=== PATIENT | male | born 1940 | race Caucasian/White ===

== ENCOUNTER 2018-05-30 10:11 | Inpatient (IN) | payer MEDICARE, MEDICAID ==
[~2018-05-30] VITALS: Ht 170.2 cm; Wt 81.6 kg
[2018-05-30 11:53] LABS: HEMATOCRIT. 38.7 % (42.0-52.0); HEMOGLOBIN. 12.5 g/dL (14.0-18.0); MEAN CORPUSCULAR HEMOGLOBIN 31.7 pg (28.0-32.0); MEAN CORPUSCULAR VOLUME 98.5 fL (80.0-94.0); MEAN PLATELET VOLUME 9.3 fl (7.4-10.4); PLATELET 166 x1000/uL (130-400); RED BLOOD CELL COUNT 3.93 mill/uL (4.7-6.1)
[2018-05-30 11:59] LABS: CHLORIDE 105 mEq/L (98-107)
[2018-05-30 12:27] LABS: ATYPICAL LYMPHOCYTES 1; NUCLEATED RED BLOOD CELLS 1 /100 WBC
[2018-05-30 12:28] LABS: PLATELET ESTIMATE NORMAL
[2018-05-30] MEDS ORDERED: SODIUM BICARBONATE 8.4% 1 MEQ/ML 50ML SYR IV ONE (12:30)
[2018-05-30] MEDS ORDERED: INSULIN REGULAR (HUMULIN R) 300UNITS/3ML IV ONE (12:30)
[2018-05-30] MEDS ORDERED: DEXTROSE 50% WATER 50ML SYRINGE IV ONE (12:30)
[2018-05-30] MEDS ORDERED: CALCIUM CHLORIDE 1GM/10ML SYR IV ONE (12:30)
[2018-05-30] MEDS ORDERED: ALBUTEROL (0.083%) 2.5MG/3ML NEB HHN ONE (12:30)
[2018-05-30] MEDS ORDERED: SODIUM POLYSTYRENE SULFONATE 15 G/60 ML BOT PO ONE (12:30)
[2018-05-30] MEDS ORDERED: ONDANSETRON HCL 4MG/2ML INJ IV PRN (13:00)
[2018-05-30] MEDS ORDERED: CLONIDINE 0.1MG TABLET PO PRN (13:00)
[2018-05-30] MEDS ORDERED: ACETAMINOPHEN 325MG TABLET PO PRN (13:00)
[2018-05-30] MEDS ORDERED: HYDROCODONE/ACETAMINOPHEN 5/325MG TABLET PO PRN (13:30)
[2018-05-30] MEDS ORDERED: HYDROMORPHONE HCL/PF 2MG/ML CPJ IV PRN (13:30)
[2018-05-30 14:34] LABS: PHOSPHORUS 3.3 mg/dL (2.5-4.9)
[2018-05-30] MEDS ORDERED: HYDROMORPHONE HCL/PF 2MG/ML CPJ IV NR (21:30)
[2018-05-30] MEDS: AMLODIPINE 5MG TABLET PO SCH (23:12)
[2018-05-30] MEDS ORDERED: AMLODIPINE 5MG TABLET PO NR (23:15)
[2018-05-31] VITALS (10 sets, daily range): BP systolic 136–184; BP diastolic 70–132
[2018-05-31] MEDS ORDERED: ENOXAPARIN 30MG/0.3ML SYR SUBCUT SCH (09:00)
[2018-05-31] MEDS: AMLODIPINE 5MG TABLET PO SCH (09:15)
[2018-05-31 09:41] LABS: HEMATOCRIT. 39.4 % (42.0-52.0); HEMOGLOBIN. 13.1 g/dL (14.0-18.0); MEAN CORPUSCULAR HEMOGLOBIN 32.5 pg (28.0-32.0); MEAN CORPUSCULAR VOLUME 97.7 fL (80.0-94.0); MEAN PLATELET VOLUME 9.4 fl (7.4-10.4); PLATELET 156 x1000/uL (130-400); RED BLOOD CELL COUNT 4.03 mill/uL (4.7-6.1); RED CELL DISTRIBUTION WIDTH 16.1 % (11.6-14.6)
[2018-05-31 15:23] LABS: PLATELET ESTIMATE NORMAL
== END 2018-05-31 16:00 | disposition home health service (06) | DRG 551 ==
LOC: ER 10:11 → 5EST 12:43 → EDBEDREQ 12:45 → EDBEDREQTM 12:45 → ENRESERV 05-31 00:02
PROVIDERS: ADMIT Internal Medicine; ATTEND Internal Medicine
PROC: 5A1D70Z Performance of Urinary Filtration, Intermittent, Less than 6 Hours Per Day (ICD-10-PCS; principal; 2018-05-30)
PROC: 5A1D70Z Performance of Urinary Filtration, Intermittent, Less than 6 Hours Per Day (ICD-10-PCS; 2018-05-31)
DX: M48.061 Spinal stenosis, lumbar region without neurogenic claudication (principal); N18.6 End stage renal disease; I13.11 Hypertensive heart and chronic kidney disease without heart failure, with stage 5 chronic kidney disease, or end stage renal disease; J98.11 Atelectasis; E87.5 Hyperkalemia; D63.8 Anemia in other chronic diseases classified elsewhere; E11.22 Type 2 diabetes mellitus with diabetic chronic kidney disease; G40.909 Epilepsy, unspecified, not intractable, without status epilepticus; G89.29 Other chronic pain; J44.9 Chronic obstructive pulmonary disease, unspecified; M51.36 Other intervertebral disc degeneration, lumbar region; M41.9 Scoliosis, unspecified; M43.16 Spondylolisthesis, lumbar region; M47.816 Spondylosis without myelopathy or radiculopathy, lumbar region; Z99.2 Dependence on renal dialysis; Z85.46 Personal history of malignant neoplasm of prostate
CPT/HCPCS: 36415; 71045; 72131; 80048; 82962; 83036; 83880; 84100; 84484; 93005; 96374; 96375; 97116; 97162; 97530; 99291; J1170; J1650; J1815; J3490; J7611

== ENCOUNTER 2021-02-24 20:11 | Inpatient (IN) | payer MEDICARE, MEDICAID ==
[~2021-02-24] VITALS: Ht 170.2 cm; Wt 81.6 kg
[2021-02-24 20:11] VITALS: BP 139/50
[2021-02-24 21:11] VITALS: BP 139/58
[2021-02-24] MEDS ORDERED: ONDANSETRON HCL 4MG TABLET PO PRN (21:15)
[2021-02-24] MEDS ORDERED: IPRATROPIUM BROMIDE (0.02%) 0.5MG/2.5ML NEB HHN PRN (21:15)
[2021-02-24] MEDS ORDERED: ALBUTEROL (0.083%) 2.5MG/3ML NEB HHN PRN (21:15)
[2021-02-24] MEDS ORDERED: NITROGLYCERIN 0.4MG TABLET SL SL PRN (21:15)
[2021-02-24] MEDS ORDERED: LORAZEPAM 0.5MG TABLET PO PRN (22:00)
[2021-02-25] MEDS ORDERED: LORAZEPAM 0.5MG TABLET PO PRN (02:00)
[2021-02-25] MEDS: HYDROCODONE/ACETAMINOPHEN 5/325MG TABLET PO PRN ×3 (02:50→17:12)
[2021-02-25 07:07] LABS: BASOPHILS % 1.9 % (0.0-2.0); EOSINOPHILS % 5.3 % (0.0-5.0); HEMATOCRIT. 30.8 % (42.0-52.0); HEMOGLOBIN. 10.2 g/dL (14.0-18.0); LYMPHOCYTES % 25.4 % (20.0-50.0); MEAN CORPUSCULAR HEMOGLOBIN 32.1 pg (28.0-32.0); MEAN CORPUSCULAR VOLUME 96.6 fL (80.0-94.0); MEAN PLATELET VOLUME 8.7 fl (7.4-10.4); NEUTROPHILS % 56.4 % (40.0-76.0); PLATELET 207 x1000/uL (130-400); RED BLOOD CELL COUNT 3.19 mill/uL (4.7-6.1); RED CELL DISTRIBUTION WIDTH 14.8 % (11.6-14.6)
[2021-02-25 07:17] LABS: CHLORIDE 109 mEq/L (98-107)
[2021-02-25 08:00] VITALS: BP 119/77
[2021-02-25] MEDS: METOPROLOL TARTRATE 50MG TABLET PO SCH ×2 (09:00→16:59)
[2021-02-25] MEDS ORDERED: METOPROLOL SUCCINATE 50MG ER TABLET PO SCH (09:00)
[2021-02-25] MEDS: AMLODIPINE 10MG TABLET PO SCH ×3 (09:00→17:10)
[2021-02-25] MEDS: MINOXIDIL 2.5MG TABLET PO SCH ×3 (09:00→17:11)
[2021-02-25] MEDS: FLUTICASONE PROPIONATE 50MCG/SPRAY BOTTLE BOTHNSTRLS SCH ×2 (09:34→21:17)
[2021-02-25] MEDS: DIPHENHYDRAMINE HCL/ZINC ACET 28 GM CREAM TOP SCH ×2 (09:34→17:12)
[2021-02-25] MEDS: SUCRALFATE 1G TABLET PO SCH ×3 (09:35→17:12)
[2021-02-25] MEDS: ASCORBIC ACID 500 MG TABLET PO SCH (09:35)
[2021-02-25] MEDS: DOCUSATE SODIUM 250MG CAPSULE PO SCH (09:35)
[2021-02-25] MEDS: PAROXETINE HCL 10MG TABLET PO SCH (09:36)
[2021-02-25] MEDS: GABAPENTIN 100MG CAPSULE PO SCH ×3 (09:36→17:12)
[2021-02-25] MEDS: ENOXAPARIN 30MG/0.3ML SYR SUBCUT SCH (09:44)
[2021-02-25] MEDS ORDERED: SODIUM BICARBONATE 8.4% 1 MEQ/ML 50ML SYR IV NR (10:08)
[2021-02-25] MEDS ORDERED: INSULIN REGULAR (HUMULIN R) UD 100 UNITS/ML SYR IV NR (11:00)
[2021-02-25] MEDS ORDERED: SODIUM POLYSTYRENE SULFONATE 15 G/60 ML BOT PO NR (11:00)
[2021-02-25] MEDS ORDERED: DEXTROSE 50% WATER 50ML SYRINGE IV NR (11:00)
[2021-02-25] MEDS ORDERED: CALCIUM CHLORIDE 1,000 MG in DEXT 5% WATER 90 ML IV NR (11:00)
[2021-02-25 12:56] LABS: HEPATITIS B SURFACE ANTIGEN NEGATIVE
[2021-02-25] MEDS: ACYCLOVIR 400 MG TABLET PO SCH ×2 (14:22→22:20)
[2021-02-25] MEDS: CLONIDINE 0.1MG TABLET PO PRN (14:26)
[2021-02-25] MEDS: LIDOCAINE 5% PATCH TOP SCH (14:29)
[2021-02-25] MEDS ORDERED: MINO2.5T2 PO (16:52)
[2021-02-25] MEDS ORDERED: METO-385 MT (16:52)
[2021-02-25] MEDS ORDERED: AMLO10TA4 MT (16:52)
[2021-02-25 20:00] VITALS: BP 141/66
[2021-02-26] MEDS: HYDROCODONE/ACETAMINOPHEN 5/325MG TABLET PO PRN ×3 (01:11→23:53)
[2021-02-26 07:37] LABS: BASOPHILS % 1.4 % (0.0-2.0); HEMATOCRIT. 33.7 % (42.0-52.0); HEMOGLOBIN. 11.3 g/dL (14.0-18.0); LYMPHOCYTES % 22.4 % (20.0-50.0); MEAN CORPUSCULAR VOLUME 95.6 fL (80.0-94.0); MEAN PLATELET VOLUME 8.6 fl (7.4-10.4); MONOCYTES % 8.6 % (2.0-8.0); NEUTROPHILS % 62.6 % (40.0-76.0); PLATELET 259 x1000/uL (130-400); RED BLOOD CELL COUNT 3.52 mill/uL (4.7-6.1); RED CELL DISTRIBUTION WIDTH 14.6 % (11.6-14.6)
[2021-02-26 07:41] LABS: CHLORIDE 105 mEq/L (98-107)
[2021-02-26 07:57] LABS: PROSTRATE SPECIFIC AG TOTAL 0.03 ng/mL (0.0-4.0)
[2021-02-26 07:59] LABS: TOTAL IRON BINDING CAPACITY 190 ug/dL (250-450)
[2021-02-26 08:00] VITALS: BP 189/99
[2021-02-26 08:01] LABS: FOLIC ACID (FOLATE) SERUM 11.9 ng/mL (>5.38)
[2021-02-26] MEDS: MINOXIDIL 2.5MG TABLET PO SCH (08:57)
[2021-02-26] MEDS: AMLODIPINE 10MG TABLET PO SCH (08:57)
[2021-02-26] MEDS: DOCUSATE SODIUM 250MG CAPSULE PO SCH (08:57)
[2021-02-26] MEDS: ACYCLOVIR 400 MG TABLET PO SCH ×2 (08:58→20:50)
[2021-02-26] MEDS: METOPROLOL TARTRATE 50MG TABLET PO SCH ×2 (08:58→16:12)
[2021-02-26] MEDS: GABAPENTIN 100MG CAPSULE PO SCH ×3 (08:58→16:13)
[2021-02-26] MEDS: SUCRALFATE 1G TABLET PO SCH ×3 (08:58→16:12)
[2021-02-26] MEDS: ASCORBIC ACID 500 MG TABLET PO SCH (08:58)
[2021-02-26] MEDS: PAROXETINE HCL 10MG TABLET PO SCH (08:59)
[2021-02-26] MEDS: ENOXAPARIN 30MG/0.3ML SYR SUBCUT SCH (09:00)
[2021-02-26] MEDS: LIDOCAINE 5% PATCH TOP SCH (09:00)
[2021-02-26] MEDS ORDERED: NALOXONE HCL 0.4MG/ML VIAL IV PRN (09:30)
[2021-02-26] MEDS ORDERED: ALBUTEROL (0.083%) 2.5MG/3ML NEB HHN NR (09:30)
[2021-02-26] MEDS: FLUTICASONE PROPIONATE 50MCG/SPRAY BOTTLE BOTHNSTRLS SCH ×2 (10:59→20:50)
[2021-02-26] MEDS: DIPHENHYDRAMINE HCL/ZINC ACET 28 GM CREAM TOP SCH ×2 (11:00→16:18)
[2021-02-26 12:00] VITALS: BP 159/74
[2021-02-26] MEDS: LACTULOSE 20G/30ML UDC PO SCH ×2 (13:51→16:13)
[2021-02-26] MEDS: CLONIDINE 0.1MG TABLET PO PRN ×2 (14:14→20:51)
[2021-02-26 14:48] VITALS: BP 155/74
[2021-02-26 17:10] VITALS: BP 117/71
[2021-02-26 20:00] VITALS: BP 184/90
[2021-02-26 23:56] VITALS: BP 143/79
[2021-02-27 07:53] VITALS: BP 153/72
[2021-02-27] MEDS: ASCORBIC ACID 500 MG TABLET PO SCH (08:52)
[2021-02-27] MEDS: ACYCLOVIR 400 MG TABLET PO SCH ×2 (08:52→20:02)
[2021-02-27] MEDS: DOCUSATE SODIUM 250MG CAPSULE PO SCH ×2 (08:52→09:00)
[2021-02-27] MEDS: GABAPENTIN 100MG CAPSULE PO SCH ×3 (08:53→17:52)
[2021-02-27] MEDS: PAROXETINE HCL 10MG TABLET PO SCH (08:53)
[2021-02-27] MEDS: METOPROLOL TARTRATE 50MG TABLET PO SCH (08:53)
[2021-02-27] MEDS: AMLODIPINE 10MG TABLET PO SCH (08:53)
[2021-02-27] MEDS: SUCRALFATE 1G TABLET PO SCH ×3 (08:53→17:52)
[2021-02-27] MEDS: MINOXIDIL 2.5MG TABLET PO SCH (08:53)
[2021-02-27] MEDS: ENOXAPARIN 30MG/0.3ML SYR SUBCUT SCH (08:54)
[2021-02-27] MEDS: FLUTICASONE PROPIONATE 50MCG/SPRAY BOTTLE BOTHNSTRLS SCH ×2 (09:00→20:01)
[2021-02-27] MEDS: DIPHENHYDRAMINE HCL/ZINC ACET 28 GM CREAM TOP SCH ×2 (09:00→17:51)
[2021-02-27] MEDS: LIDOCAINE 5% PATCH TOP SCH (09:00)
[2021-02-27 09:23] LABS: BASOPHILS % 1.7 % (0.0-2.0); EOSINOPHILS % 4.5 % (0.0-5.0); HEMATOCRIT. 35.2 % (42.0-52.0); HEMOGLOBIN. 11.7 g/dL (14.0-18.0); LYMPHOCYTES % 22.6 % (20.0-50.0); MEAN CORPUSCULAR HEMOGLOBIN 31.9 pg (28.0-32.0); MEAN CORPUSCULAR VOLUME 96.3 fL (80.0-94.0); MEAN PLATELET VOLUME 8.2 fl (7.4-10.4); MONOCYTES % 7.8 % (2.0-8.0); NEUTROPHILS % 63.4 % (40.0-76.0); PLATELET 271 x1000/uL (130-400); RED BLOOD CELL COUNT 3.65 mill/uL (4.7-6.1); RED CELL DISTRIBUTION WIDTH 14.4 % (11.6-14.6)
[2021-02-27 09:35] VITALS: BP 215/94
[2021-02-27] MEDS: HYDROCODONE/ACETAMINOPHEN 5/325MG TABLET PO PRN ×2 (11:26→23:48)
[2021-02-27 11:28] VITALS: BP 150/70
[2021-02-27 14:49] VITALS: BP 162/70
[2021-02-27] MEDS: CLONIDINE 0.1MG TABLET PO PRN (14:56)
[2021-02-27] MEDS: METOPROLOL TARTRATE 100MG TABLET PO SCH (17:52)
[2021-02-27 20:00] VITALS: BP 126/62
[2021-02-27] MEDS: DOXAZOSIN MESYLATE 2MG TABLET PO SCH (20:02)
[2021-02-28 08:00] VITALS: BP 191/101
[2021-02-28] MEDS: LIDOCAINE 5% PATCH TOP SCH (08:12)
[2021-02-28] MEDS: ENOXAPARIN 30MG/0.3ML SYR SUBCUT SCH (08:13)
[2021-02-28] MEDS: SUCRALFATE 1G TABLET PO SCH ×3 (08:14→18:08)
[2021-02-28] MEDS: GABAPENTIN 100MG CAPSULE PO SCH ×3 (08:14→18:08)
[2021-02-28] MEDS: HYDROCODONE/ACETAMINOPHEN 5/325MG TABLET PO PRN (08:14)
[2021-02-28] MEDS: DOCUSATE SODIUM 250MG CAPSULE PO SCH (08:14)
[2021-02-28] MEDS: ACYCLOVIR 400 MG TABLET PO SCH ×2 (08:14→20:10)
[2021-02-28] MEDS: ASCORBIC ACID 500 MG TABLET PO SCH (08:15)
[2021-02-28] MEDS: PAROXETINE HCL 10MG TABLET PO SCH (08:15)
[2021-02-28] MEDS: MINOXIDIL 2.5MG TABLET PO SCH (08:15)
[2021-02-28] MEDS: AMLODIPINE 10MG TABLET PO SCH (08:16)
[2021-02-28] MEDS: FLUTICASONE PROPIONATE 50MCG/SPRAY BOTTLE BOTHNSTRLS SCH (08:16)
[2021-02-28] MEDS: METOPROLOL TARTRATE 100MG TABLET PO SCH ×2 (08:16→18:10)
[2021-02-28] MEDS: DIPHENHYDRAMINE HCL/ZINC ACET 28 GM CREAM TOP SCH ×2 (08:17→17:00)
[2021-02-28 09:58] LABS: EOSINOPHILS % 3.2 % (0.0-5.0); HEMATOCRIT. 31.6 % (42.0-52.0); HEMOGLOBIN. 10.4 g/dL (14.0-18.0); LYMPHOCYTES % 23.6 % (20.0-50.0); MEAN CORPUSCULAR HEMOGLOBIN 32.5 pg (28.0-32.0); MEAN CORPUSCULAR VOLUME 98.4 fL (80.0-94.0); MEAN PLATELET VOLUME 8.3 fl (7.4-10.4); NEUTROPHILS % 61.2 % (40.0-76.0); PLATELET 238 x1000/uL (130-400); RED BLOOD CELL COUNT 3.21 mill/uL (4.7-6.1); RED CELL DISTRIBUTION WIDTH 14.3 % (11.6-14.6)
[2021-02-28] MEDS: LIDOCAINE HCL 4% CREAM 76GM TUBE TP SCH ×2 (15:30→23:20)
[2021-02-28 20:00] VITALS: BP 128/77
[2021-02-28] MEDS: DOXAZOSIN MESYLATE 2MG TABLET PO SCH (23:35)
[2021-03-01] MEDS: CLONIDINE 0.1MG TABLET PO PRN (02:54)
[2021-03-01] MEDS: LIDOCAINE HCL 4% CREAM 76GM TUBE TP SCH ×3 (05:44→23:07)
[2021-03-01 06:42] VITALS: BP 165/77
[2021-03-01 08:00] VITALS: BP 157/76
[2021-03-01] MEDS: DIPHENHYDRAMINE HCL/ZINC ACET 28 GM CREAM TOP SCH (09:00)
[2021-03-01] MEDS: ASCORBIC ACID 500 MG TABLET PO SCH (09:37)
[2021-03-01] MEDS: SUCRALFATE 1G TABLET PO SCH ×3 (09:37→17:45)
[2021-03-01] MEDS: ACYCLOVIR 400 MG TABLET PO SCH (09:38)
[2021-03-01] MEDS: DOCUSATE SODIUM 250MG CAPSULE PO SCH (09:38)
[2021-03-01] MEDS: MINOXIDIL 2.5MG TABLET PO SCH (09:41)
[2021-03-01] MEDS: PAROXETINE HCL 10MG TABLET PO SCH (09:42)
[2021-03-01] MEDS: AMLODIPINE 10MG TABLET PO SCH (09:42)
[2021-03-01] MEDS: GABAPENTIN 100MG CAPSULE PO SCH ×3 (09:42→17:45)
[2021-03-01] MEDS: METOPROLOL TARTRATE 100MG TABLET PO SCH ×2 (09:50→17:47)
[2021-03-01] MEDS: ENOXAPARIN 30MG/0.3ML SYR SUBCUT SCH (09:51)
[2021-03-01] MEDS: LIDOCAINE 5% PATCH TOP SCH (09:52)
[2021-03-01] MEDS: DIPHENHYDRAMINE HCL/ZINC ACET 28 GM CREAM TOP PRN (10:16)
[2021-03-01 20:00] VITALS: BP 156/60
[2021-03-01] MEDS: DOXAZOSIN MESYLATE 2MG TABLET PO SCH (22:54)
[2021-03-02] MEDS: ACETAMINOPHEN 650MG/20.3ML UDC PO PRN ×2 (05:45→09:54)
[2021-03-02] MEDS: LIDOCAINE HCL 4% CREAM 76GM TUBE TP SCH ×3 (06:00→22:00)
[2021-03-02 08:00] VITALS: BP 154/66
[2021-03-02] MEDS ORDERED: CLONIDINE HCL 0.3MG/24HR PATCH TD SCH (09:00)
[2021-03-02] MEDS: SUCRALFATE 1G TABLET PO SCH ×3 (09:48→18:23)
[2021-03-02] MEDS: DOCUSATE SODIUM 250MG CAPSULE PO SCH (09:48)
[2021-03-02] MEDS: MINOXIDIL 2.5MG TABLET PO SCH (09:49)
[2021-03-02] MEDS: METOPROLOL TARTRATE 100MG TABLET PO SCH ×2 (09:50→18:23)
[2021-03-02] MEDS: AMLODIPINE 10MG TABLET PO SCH (09:51)
[2021-03-02] MEDS: GABAPENTIN 100MG CAPSULE PO SCH ×3 (09:51→18:24)
[2021-03-02] MEDS: PAROXETINE HCL 10MG TABLET PO SCH (09:52)
[2021-03-02] MEDS: ASCORBIC ACID 500 MG TABLET PO SCH (09:52)
[2021-03-02] MEDS: CLONIDINE 0.1MG TABLET PO PRN (09:53)
[2021-03-02] MEDS: ENOXAPARIN 30MG/0.3ML SYR SUBCUT SCH (09:53)
[2021-03-02] MEDS: LIDOCAINE 5% PATCH TOP SCH (09:57)
[2021-03-02] MEDS: DIPHENHYDRAMINE HCL/ZINC ACET 28 GM CREAM TOP PRN (13:16)
[2021-03-02] MEDS ORDERED: MORPHINE SULFATE 2 MG/ML CPJ (NOT FOR IM USE) IV NR (15:30)
[2021-03-02] MEDS: HYDROCODONE/ACETAMINOPHEN 5/325MG TABLET PO PRN (18:25)
[2021-03-02] MEDS: METHOCARBAMOL 500MG TABLET PO SCH (19:08)
[2021-03-02 20:00] VITALS: BP 149/68
[2021-03-02] MEDS ORDERED: LORAZEPAM 0.5MG TABLET PO NR (21:30)
[2021-03-02] MEDS ORDERED: METHOCARBAMOL 500MG TABLET PO SCH (22:00)
[2021-03-02] MEDS: DOXAZOSIN MESYLATE 2MG TABLET PO SCH (23:15)
[2021-03-03] MEDS: METHOCARBAMOL 500MG TABLET PO SCH ×2 (06:41→13:13)
[2021-03-03] MEDS: LIDOCAINE HCL 4% CREAM 76GM TUBE TP SCH ×3 (06:42→21:39)
[2021-03-03 08:08] VITALS: BP 144/57
[2021-03-03] MEDS: METOPROLOL TARTRATE 100MG TABLET PO SCH ×2 (09:00→17:48)
[2021-03-03] MEDS: DOCUSATE SODIUM 250MG CAPSULE PO SCH (09:40)
[2021-03-03] MEDS: MINOXIDIL 2.5MG TABLET PO SCH (09:40)
[2021-03-03] MEDS: AMLODIPINE 10MG TABLET PO SCH (09:41)
[2021-03-03] MEDS: PAROXETINE HCL 10MG TABLET PO SCH (09:41)
[2021-03-03] MEDS: GABAPENTIN 100MG CAPSULE PO SCH ×3 (09:41→17:30)
[2021-03-03] MEDS: SUCRALFATE 1G TABLET PO SCH ×3 (09:41→17:30)
[2021-03-03] MEDS: ASCORBIC ACID 500 MG TABLET PO SCH (09:41)
[2021-03-03] MEDS: LIDOCAINE 5% PATCH TOP SCH (09:43)
[2021-03-03] MEDS: ENOXAPARIN 30MG/0.3ML SYR SUBCUT SCH (09:49)
[2021-03-03] MEDS: HYDROCODONE/ACETAMINOPHEN 5/325MG TABLET PO PRN (11:51)
[2021-03-03] MEDS ORDERED: ALPRAZOLAM 0.5 MG TABLET PO SCH (14:15)
[2021-03-03 19:10] LABS: 25-HYDROXY VITAMIN D3 39 ng/mL (.)
[2021-03-03 20:00] VITALS: BP 113/47
[2021-03-03 21:37] LABS: T4 FREE 1.02 ng/dL (0.76-1.46)
[2021-03-03] MEDS: DOXAZOSIN MESYLATE 2MG TABLET PO SCH (21:47)
[2021-03-04] MEDS: HYDROCODONE/ACETAMINOPHEN 5/325MG TABLET PO PRN ×2 (02:45→07:56)
[2021-03-04] MEDS: DIPHENHYDRAMINE HCL/ZINC ACET 28 GM CREAM TOP PRN (03:44)
[2021-03-04] MEDS: LIDOCAINE HCL 4% CREAM 76GM TUBE TP SCH ×3 (05:54→21:02)
[2021-03-04 08:00] VITALS: BP 144/56
[2021-03-04] MEDS: SUCRALFATE 1G TABLET PO SCH ×3 (09:32→16:57)
[2021-03-04] MEDS: DOCUSATE SODIUM 250MG CAPSULE PO SCH (09:32)
[2021-03-04] MEDS: PAROXETINE HCL 10MG TABLET PO SCH (09:33)
[2021-03-04] MEDS: ASCORBIC ACID 500 MG TABLET PO SCH (09:33)
[2021-03-04] MEDS: AMLODIPINE 10MG TABLET PO SCH (09:36)
[2021-03-04] MEDS: METOPROLOL TARTRATE 100MG TABLET PO SCH ×2 (09:36→16:56)
[2021-03-04] MEDS: MINOXIDIL 2.5MG TABLET PO SCH (09:36)
[2021-03-04] MEDS: ACETAMINOPHEN 650MG/20.3ML UDC PO PRN (09:37)
[2021-03-04] MEDS: ENOXAPARIN 30MG/0.3ML SYR SUBCUT SCH (09:37)
[2021-03-04] MEDS: LIDOCAINE 5% PATCH TOP SCH (09:39)
[2021-03-04 20:00] VITALS: BP 126/50
[2021-03-04] MEDS ORDERED: ZOLPIDEM TARTRATE 5MG TABLET PO PRN (21:00)
[2021-03-04] MEDS: DOXAZOSIN MESYLATE 2MG TABLET PO SCH (21:01)
[2021-03-05] MEDS: HYDROCODONE/ACETAMINOPHEN 5/325MG TABLET PO PRN ×3 (01:01→16:03)
[2021-03-05] MEDS: LIDOCAINE HCL 4% CREAM 76GM TUBE TP SCH ×3 (05:44→22:13)
[2021-03-05] MEDS: MINOXIDIL 2.5MG TABLET PO SCH (08:42)
[2021-03-05] MEDS: PAROXETINE HCL 10MG TABLET PO SCH (08:43)
[2021-03-05] MEDS: ASCORBIC ACID 500 MG TABLET PO SCH (08:43)
[2021-03-05] MEDS: AMLODIPINE 10MG TABLET PO SCH (08:43)
[2021-03-05] MEDS: METOPROLOL TARTRATE 100MG TABLET PO SCH ×2 (08:43→16:03)
[2021-03-05] MEDS: SUCRALFATE 1G TABLET PO SCH ×3 (08:43→16:06)
[2021-03-05] MEDS: ENOXAPARIN 30MG/0.3ML SYR SUBCUT SCH (08:44)
[2021-03-05] MEDS: DOCUSATE SODIUM 250MG CAPSULE PO SCH (08:44)
[2021-03-05] MEDS: LIDOCAINE 5% PATCH TOP SCH (08:46)
[2021-03-05 09:00] VITALS: BP 163/76
[2021-03-05] MEDS: LORAZEPAM 0.5MG TABLET PO PRN (17:16)
[2021-03-05 17:28] LABS: BASOPHILS % 0.4 % (0.0-2.0); EOSINOPHILS % 2.4 % (0.0-5.0); HEMATOCRIT. 28.3 % (42.0-52.0); HEMOGLOBIN. 9.5 g/dL (14.0-18.0); LYMPHOCYTES % 19.7 % (20.0-50.0); MEAN PLATELET VOLUME 9.4 fl (7.4-10.4); MONOCYTES % 8.8 % (2.0-8.0); NEUTROPHILS % 68.7 % (40.0-76.0); PLATELET 200 x1000/uL (130-400); RED BLOOD CELL COUNT 2.98 mill/uL (4.7-6.1); RED CELL DISTRIBUTION WIDTH 14.2 % (11.6-14.6)
[2021-03-05 20:00] VITALS: BP 152/69
[2021-03-06] MEDS: LORAZEPAM 0.5MG TABLET PO PRN (03:42)
[2021-03-06] MEDS: DOXAZOSIN MESYLATE 2MG TABLET PO SCH (03:42)
[2021-03-06] MEDS ORDERED: BISACODYL 5MG TABLET PO PRN (05:15)
[2021-03-06] MEDS: LIDOCAINE HCL 4% CREAM 76GM TUBE TP SCH ×2 (06:11→14:00)
[2021-03-06 08:00] VITALS: BP 122/50
[2021-03-06] MEDS: AMLODIPINE 10MG TABLET PO SCH (08:25)
[2021-03-06] MEDS: MINOXIDIL 2.5MG TABLET PO SCH (08:25)
[2021-03-06] MEDS: PAROXETINE HCL 10MG TABLET PO SCH (08:25)
[2021-03-06] MEDS: SUCRALFATE 1G TABLET PO SCH ×2 (08:25→12:58)
[2021-03-06] MEDS: ASCORBIC ACID 500 MG TABLET PO SCH (08:25)
[2021-03-06] MEDS: DOCUSATE SODIUM 250MG CAPSULE PO SCH (08:25)
[2021-03-06] MEDS: METOPROLOL TARTRATE 100MG TABLET PO SCH (08:26)
[2021-03-06] MEDS: LIDOCAINE 5% PATCH TOP SCH (08:27)
[2021-03-06] MEDS: ENOXAPARIN 30MG/0.3ML SYR SUBCUT SCH (08:27)
[2021-03-06] MEDS: HYDROCODONE/ACETAMINOPHEN 5/325MG TABLET PO PRN ×2 (08:29→12:58)
[2021-03-06 08:45] LABS: BASOPHILS % 2.2 % (0.0-2.0); EOSINOPHILS % 2.5 % (0.0-5.0); HEMATOCRIT. 25.2 % (42.0-52.0); HEMOGLOBIN. 8.6 g/dL (14.0-18.0); LYMPHOCYTES % 24.3 % (20.0-50.0); MEAN CORPUSCULAR HEMOGLOBIN 32.1 pg (28.0-32.0); MEAN CORPUSCULAR VOLUME 93.8 fL (80.0-94.0); MONOCYTES % 7.9 % (2.0-8.0); NEUTROPHILS % 63.1 % (40.0-76.0); PLATELET 211 x1000/uL (130-400); RED BLOOD CELL COUNT 2.68 mill/uL (4.7-6.1)
[2021-03-06 12:58] VITALS: BP_DIAS 75
[2021-03-06] MEDS: CLONIDINE 0.1MG TABLET PO PRN (12:58)
[2021-03-06 13:20] VITALS: BP 150/75
== END 2021-03-06 17:05 | disposition left against medical advice (07) | DRG 91 ==
PROVIDERS: ADMIT Physical Medicine & Rehabilitation Spinal Cord Injury Medicine; ATTEND Internal Medicine Nephrology
PROC: 5A1D70Z Performance of Urinary Filtration, Intermittent, Less than 6 Hours Per Day (ICD-10-PCS; 2021-02-25)
PROC: 5A1D70Z Performance of Urinary Filtration, Intermittent, Less than 6 Hours Per Day (ICD-10-PCS; 2021-02-26)
PROC: 5A1D70Z Performance of Urinary Filtration, Intermittent, Less than 6 Hours Per Day (ICD-10-PCS; 2021-03-01)
PROC: 5A1D70Z Performance of Urinary Filtration, Intermittent, Less than 6 Hours Per Day (ICD-10-PCS; 2021-03-03)
PROC: 4A10X4Z Monitoring of Central Nervous Electrical Activity, External Approach (ICD-10-PCS; principal; 2021-03-05)
PROC: 5A1D70Z Performance of Urinary Filtration, Intermittent, Less than 6 Hours Per Day (ICD-10-PCS; 2021-03-05)
DX: G92.8 Other toxic encephalopathy (principal); N18.6 End stage renal disease; F33.1 Major depressive disorder, recurrent, moderate; G82.20 Paraplegia, unspecified; B02.29 Other postherpetic nervous system involvement; I12.0 Hypertensive chronic kidney disease with stage 5 chronic kidney disease or end stage renal disease; G25.9 Extrapyramidal and movement disorder, unspecified; D63.8 Anemia in other chronic diseases classified elsewhere; E11.22 Type 2 diabetes mellitus with diabetic chronic kidney disease; E87.5 Hyperkalemia; F03.90 Unspecified dementia, unspecified severity, without behavioral disturbance, psychotic disturbance, mood disturbance, and anxiety; F41.9 Anxiety disorder, unspecified; M51.36 Other intervertebral disc degeneration, lumbar region; M48.061 Spinal stenosis, lumbar region without neurogenic claudication; M48.02 Spinal stenosis, cervical region; R26.89 Other abnormalities of gait and mobility; R20.0 Anesthesia of skin; M47.26 Other spondylosis with radiculopathy, lumbar region; G47.00 Insomnia, unspecified; G89.29 Other chronic pain; E11.40 Type 2 diabetes mellitus with diabetic neuropathy, unspecified; Z53.29 Procedure and treatment not carried out because of patient's decision for other reasons; Z20.822 Contact with and (suspected) exposure to COVID-19; M85.80 Other specified disorders of bone density and structure, unspecified site; Z82.49 Family history of ischemic heart disease and other diseases of the circulatory system; Z87.891 Personal history of nicotine dependence; Z99.2 Dependence on renal dialysis; Z79.899 Other long term (current) drug therapy
CPT/HCPCS: 36415; 72131; 73130; 73522; 80048; 80053; 82306; 82390; 82607; 82728; 82746; 83540; 83550; 84100; 84132; 84134; 84153; 84439; 84443; 84481; 85025; 86705; 86709; 86803; 87340; 87426; 92523; 93970; 94640; 97110; 97112; 97116; 97162; 97166; 97530; 97535; C1893; J1650; J1815; J3490; J7060; G0103